=== PATIENT | female | born 1985 | race Caucasian/White ===

== ENCOUNTER 2024-06-07 09:06 | Outpatient (CLI) | payer OTHER ==
[~2024-06-07 09:06] MED LIST: CEFADROXIL500 MG PO; FIORICET 50-301 EACH PO; VASOTEC2.5 MG PO
== END 2024-06-07 09:14 | disposition home or self-care (01) ==
LOC: RAD 09:06
PROVIDERS: ATTEND Obstetrics & Gynecology Gynecology
DX: R05.9 Cough, unspecified (principal)

== ENCOUNTER 2024-06-15 12:15 | Inpatient (IN) | payer OTHER ==
[~2024-06-15] VITALS: Ht 61 cm; Wt 54.4 kg
[2024-06-15] MEDS ORDERED: NORVASC10 MG PO (14:07)
[2024-06-21] MEDS ORDERED: CEFAZOLIN SODIUM 1,000 MG VIAL IV SCH (15:00)
[2024-06-21] MEDS ORDERED: CELECOXIB 200 MG CAPSULE PO STA (16:13)
[2024-06-21] MEDS ORDERED: THROMBIN,HU/FIBRINOGEN/CALCIUM 10 ML SYRINGE TOP ONE (16:15)
[2024-06-21] MEDS ORDERED: MORPHINE SULFATE 4 MG/ML VIAL IV ONE (16:15)
[2024-06-21] MEDS ORDERED: RINGERS SOLUTION,LACTATED 1,000 ML IV SCH (17:00)
[2024-06-21] MEDS ORDERED: GABAPENTIN 100 MG CAPSULE PO SCH (17:00)
[2024-06-21] MEDS ORDERED: ENALAPRILAT DIHYDRATE 1.25 MG/ML VIAL IV PRN (17:30)
[2024-06-21 17:48] LABS: HEMATOCRIT 30.3 % (36.0-45.00); MEAN CELL VOLUME 83.5 fL (80.00-100.00); MEAN CORPUSCULAR HGB CONC 32.2 g/dl (32.0-36.0); PLATELET COUNT 450 K/uL (150-450); RED BLOOD COUNT 3.63 M/uL (4.00-6.00)
[2024-06-21 17:51] LABS: HEMOGLOBIN 9.8 g/dL (12.0-15.00); MEAN CORPUSCULAR HEMOGLOBIN 26.9 pg (27.00-32.0)
[2024-06-21 17:52] LABS: RED CELL DISTRIBUTION WIDTH 17.1 % (11.5-14.5)
[2024-06-21] MEDS ORDERED: ONDANSETRON HCL 2 MG/ML VIAL IV SCH (18:00)
[2024-06-21] MEDS ORDERED: ACETAMINOPHEN 325 MG TABLET PO SCH (18:00)
[2024-06-21] MEDS ORDERED: KETOROLAC TROMETHAMINE 30 MG VIAL IV NR (18:07)
[2024-06-21 18:13] VITALS: BP 122/74
[2024-06-21 18:15] LABS: CALCIUM 8.5 mg/dL (8.5-10.1); CREATININE SERUM 0.56 mg/dL (0.55-1.02); GFR 121.15; POTASSIUM 3.89 mEq/L (3.5-5.1)
[2024-06-21 23:37] LABS: HEMATOCRIT 26.6 % (36.0-45.00); MEAN CELL VOLUME 82.7 fL (80.00-100.00); MEAN CORPUSCULAR HEMOGLOBIN 27.3 pg (27.00-32.0); MEAN CORPUSCULAR HGB CONC 33.1 g/dl (32.0-36.0); PLATELET COUNT 414 K/uL (150-450); RED BLOOD COUNT 3.22 M/uL (4.00-6.00); RED CELL DISTRIBUTION WIDTH 16.6 % (11.5-14.5)
[2024-06-21 23:38] LABS: HEMOGLOBIN 8.8 g/dL (12.0-15.00)
[2024-06-22 00:55] VITALS: BP 119/71
[2024-06-22 07:22] LABS: HEMATOCRIT 27.9 % (36.0-45.00); HEMOGLOBIN 9.3 g/dL (12.0-15.00); MEAN CELL VOLUME 82.9 fL (80.00-100.00); MEAN CORPUSCULAR HEMOGLOBIN 27.7 pg (27.00-32.0); MEAN CORPUSCULAR HGB CONC 33.5 g/dl (32.0-36.0); PLATELET COUNT 451 K/uL (150-450); RED BLOOD COUNT 3.36 M/uL (4.00-6.00); RED CELL DISTRIBUTION WIDTH 16.7 % (11.5-14.5)
[2024-06-22 08:27] VITALS: BP 138/88
[2024-06-22 08:40] LABS: CALCIUM 8.7 mg/dL (8.5-10.1); CREATININE SERUM 0.47 mg/dL (0.55-1.02); GFR 148.3; POTASSIUM 3.99 mEq/L (3.5-5.1)
[2024-06-22] MEDS ORDERED: AMLODIPINE BESYLATE 10 MG TABLET PO SCH (09:00)
[2024-06-22] MEDS ORDERED: Cyanocobalamin/Mecobalamin 1 TAB.SL SL SCH (09:00)
[2024-06-22] MEDS ORDERED: SOD FERRIC GLUC COMPLX/SUCROSE 62.5 MG in 0.9 % SODIUM CHLORIDE 50 ML IV SCH (09:00)
[2024-06-22] MEDS ORDERED: CELECOXIB 200 MG CAPSULE PO STA (10:51)
[2024-06-22] MEDS ORDERED: FAMOTIDINE/PF 20 MG/2 ML VIAL IV PUSH SCH (10:52)
[2024-06-22 16:10] VITALS: BP 119/76
[2024-06-22] MEDS ORDERED: KETOROLAC TROMETHAMINE 30 MG VIAL IV SCH (18:00)
[2024-06-23] VITALS: BP 140/70
[2024-06-23 08:46] VITALS: BP 125/89
== END 2024-06-23 11:14 | disposition home or self-care (01) | DRG 743 ==
LOC: SURH 06-21 12:15 → O/R 06-21 12:42 → OB/GYN 06-21 12:42
PROVIDERS: ADMIT Obstetrics & Gynecology Gynecology; ATTEND Obstetrics & Gynecology Gynecology
PROC: 0UT74ZZ Resection of Bilateral Fallopian Tubes, Percutaneous Endoscopic Approach (ICD-10-PCS; 2024-06-21)
PROC: 0UT94ZZ Resection of Uterus, Percutaneous Endoscopic Approach (ICD-10-PCS; principal; 2024-06-21 12:15)
DX: D25.0 Submucous leiomyoma of uterus (principal); N80.50 Endometriosis of intestine, unspecified; N94.5 Secondary dysmenorrhea; N80.03 Adenomyosis of the uterus; D50.0 Iron deficiency anemia secondary to blood loss (chronic)